=== PATIENT | female | born 1945 | race Caucasian/White ===

== ENCOUNTER → 2018-01-20 | Outpatient (CLI) | payer MEDICARE, BC ==
--- NOTE | 2018-01-20 14:21 | Diagnostic Imaging Report ---
EXAM: DXA BONE DENSITY INDICATIONS: SCREENING FOR OSTEOPOROSIS COMPARISON: Patients [facility], DX, BONE DXA DUAL ENERGY, 11/28/2014, 12:50. FINDINGS: Proximal left femur bone mineral density (BMD) (g/cm2):0.791 Femur T-score (standard deviation relative to young adult mean BMD): -1.2 Femur Z-score (standard deviation relative to age-matched control group):0.5 Proximal left femur bone mineral density (BMD) (g/cm2):0.641 Femur T-score (standard deviation relative to young adult mean BMD): -1.9 Femur Z-score (standard deviation relative to age-matched control group):0.1 Lumbar bone mineral density (BMD) (g/cm2):0.838 Lumbar T-score (standard deviation relative to young adult mean BMD): -1.9 Lumbar Z-score (standard deviation relative to age-matched control group):0.4 Change since prior exam (%): Femur:-7.6 Spine:-3.3 CONCLUSION: 1. Bone mineral density in the left femur is classified as osteopenia. Fracture risk is increased. 2. Bone mineral density in the spine is classified as osteopenia. Fracture risk is increased. World Health Organization Classification: *The Z-score is provided for informational purposes. The T-score is preferable for clinical decisions. When comparing exams, a change of >4% is considered statistically significant. SUGGESTED RECOMMENDATIONS: Normal \T\ Osteopenia:Consideration should be given to use of calcium supplementation, daily multiple vitamins and adequate exercise, as preventive measures against osteoporosis, if clinically indicated. Osteoporosis \T\ Severe Osteoporosis:In addition to the above, consideration should be given to medical therapy against osteoporosis, if clinically indicated. Ulisses Wheeler M.D. Dictated by: Ulisses Wheeler M.D. on 01/20/2018 at 12:20 Electronically approved by: Ulisses Wheeler M.D. on 01/20/2018 at 12:20
== END ==
LOC: MAMMO 08:37
PROVIDERS: ATTEND Internal Medicine
DX: Z12.31 Encounter for screening mammogram for malignant neoplasm of breast (principal); Z13.820 Encounter for screening for osteoporosis
CPT/HCPCS: 77067; 77080

== ENCOUNTER → 2018-02-19 | Outpatient (CLI) | payer MEDICARE, BC ==
--- NOTE | 2018-02-19 15:57 | Diagnostic Imaging Report ---
#[id number] - MGDXLT #UNILATERAL LEFT DIGITAL DIAGNOSTIC MAMMOGRAM WITH SPOT COMPRESSION: 02/19/2018 Comparison is made to exams dated: 01/20/2018 mammogram and 11/28/2014 mammogram - [facility]. Current study contains 2 films. The tissue of the left breast is heterogeneously dense. This may lower the sensitivity of mammography. Focal spot compression view and a true lateral view reveal no evidence of a mass. Findings on the previous study therefore represented overlapping breast tissue. Benign appearing calcification is present. No significant masses, calcifications or other findings are seen in the breast. There has been no significant interval change. IMPRESSION: BENIGN There is no mammographic evidence of malignancy. A 1 year screening mammogram is recommended. The patient will be notified by letter of the results. Jake Clark Jr., D.O. cw/:02/19/2018 14:20:53 Speech Coach: Jessica WILSON(Kevon)(Jared), [facility] letter sent: Normal Exam Mammogram BI-RADS: 2 Benign
== END ==
LOC: MAMMO 08:20
PROVIDERS: ATTEND Internal Medicine
DX: R92.2 Inconclusive mammogram (principal)

== ENCOUNTER 2019-01-20 11:59 | Emergency (ER) | payer MEDICARE, BC ==
[~2019-01-20] VITALS: Ht 160 cm; Wt 68.5 kg
--- OUTSIDE RECORDS SUMMARY | 2019-01-20 12:02 | XMS REPORT | Clinical Summary ---
Author Author [facility] Address Unknown Phone Unavailable Care Team Providers Care Field Sales Agent Name Role Phone Alvaro Gonzalez MD PCP Allergies No Known Allergies Medications End Date Status Medication Sig Dispensed Refills Start Date Active simvastatin (ZOCOR) 40 MG Take 40 mg by 0 tablet mouth nightly. Active apixaban (ELIQUIS) 5 mg Take 1 tablet 60 tablet 11 Tab tablet (5 mg total) 6 by mouth 2 (two) times daily. Active metFORMIN (GLUCOPHAGE-XR) Take 2 60 tablet 0 500 MG 24 hr tablet tablets 6 (1,000 mg total) by mouth daily. Active metFORMIN (GLUCOPHAGE) Take 500 mg 0 500 MG tablet by mouth daily with breakfast. 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 Chest pain 02/06/2016 Abnormal cardiovascular function study 02/06/2016 Chest pain, unspecified type 02/06/2016 Encounters Care Team Description Date Type Specialty Natalie Singer MD Lung nodule 03/10/2018 Hospital Radiology Encounter Natalie Singer MD Lung nodule (Primary Dx) 02/18/2018 Outside Orders Radiology after 01/19/2018 Social History Date Tobacco Use Types Packs/Day Years Used Never Smoker Alcohol Use Drinks/Week oz/Week Comments Yes 7 Glasses of 4.2 wine Sex Assigned at Date Recorded Not on file Industry Job Start Date Occupation Not on file Not on file Not on file Travel End Travel History Travel Start No recent travel history available. Last Filed Vital Signs Not on file Plan of Treatment Not on file Procedures Comments Procedure Name Priority Date/Time Associated Diagnosis CT CHEST WITHOUT IV Routine 03/10/2018 Lung nodule CONTRAST 10:17 AM CDT after 01/19/2018 Results * CT chest without IV contrast (03/10/2018 10:17 AM CDT) Specimen Narrative Performed At FINAL REPORT [facility] CT scan of the chest. HISTORY: Lung nodule. Comparison Study: August 20, 2017. TECHNIQUE: Contiguous helical slices were acquired through the thorax without the administration of contrast. This exam was performed according to our department dose optimization program which includes automated exposure control, adjustment of the mA and/or kV according to the patient's size and/or use of iterative reconstruction technique. FINDINGS: The mediastinum demonstrates no suspicious masses or adenopathy. Atherosclerosis is seen. There is trace peritoneal fluid. No pleural effusions are seen. The visualized portions of the upper abdomen are unremarkable. The tracheobronchial tree is clear with no endobronchial lesions. The pulmonary parenchyma demonstrates a 1 cm ill-defined nodule in the left upper lobe near the bronchovascular bundle, stable from previous. Scattered areas of atelectasis or fibrosis are seen. A stable 4 mm nodule is in the right lower lobe on image 132. No new nodules are seen. Bone windows demonstrate poststernotomy changes and degenerative changes. IMPRESSION: 1. Ill-defined left upper lobe nodule, stable from previous. The nodule has been stable since October 24, 2016. Continued follow-up to document at least two years of stability is recommended. 2. Stable tiny nodule in the right lower lobe. 3. No other significant change. Signed: Al Gomez MD Report Verified Date/Time:03/10/2018 10:59:47 Reading Location: [address] Ultrasound Reading Room Procedure Note Interface, External Ris In - 03/10/2018 11:02 AM CDT FINAL REPORT CT scan of the chest. HISTORY: Lung nodule. Comparison Study: August 20, 2017. TECHNIQUE: Contiguous helical slices were acquired through the thorax without the administration of contrast. This exam was performed according to our department dose optimization program which includes automated exposure control, adjustment of the mA and/or kV according to the patient's size and/or use of iterative reconstruction technique. FINDINGS: The mediastinum demonstrates no suspicious masses or adenopathy. Atherosclerosis is seen. There is trace peritoneal fluid. No pleural effusions are seen. The visualized portions of the upper abdomen are unremarkable. The tracheobronchial tree is clear with no endobronchial lesions. The pulmonary parenchyma demonstrates a 1 cm ill-defined nodule in the left upper lobe near the bronchovascular bundle, stable from previous. Scattered areas of atelectasis or fibrosis are seen. A stable 4 mm nodule is in the right lower lobe on image 132. No new nodules are seen. Bone windows demonstrate poststernotomy changes and degenerative changes. IMPRESSION: 1. Ill-defined left upper lobe nodule, stable from previous. The nodule has been stable since October 24, 2016. Continued follow-up to document at least two years of stability is recommended. 2. Stable tiny nodule in the right lower lobe. 3. No other significant change. Signed: Al Gomez MD Report Verified Date/Time: 03/10/2018 10:59:47 Reading Location: [facility] [id number] Ultrasound Reading Room Performing Organization Address City/State/Zipcode Phone Number GE RIS after 01/19/2018 Insurance Payer Benefit Subscriber ID Type Phone Address Plan / Group MEDICARE MEDICARE A xxxxxxxxxxx Medicare B BLUE CROSS/BLUE SHIELD BCBS xxxxxxxxxxxx O [phone] [address] [place] [address] [place] Advance Directives For more information, please contact: [facility] [address] [place] [address] Date Inactivated Comments Code Status Date Activated 02/22/2016 1:49 PM Full Code 02/17/2016 10:38 AM This code status was determined by: Patient 02/17/2016 10:38 AM Full Code 02/07/2016 2:27 PM This code status was determined by: Patient 02/07/2016 2:27 PM Full Code 02/06/2016 9:04 AM This code status was determined by: Patient
--- OUTSIDE RECORDS SUMMARY | 2019-01-20 12:02 | XMS REPORT | Clinical Summary ---
Author Author [facility] Address Unknown Phone Unavailable Care Team Providers Care Life Insurance Salesperson Name Role Phone Natalie Singer MD PCP Allergies Not on File Medications Not on file Active Problems Not on file Encounters Care Team Description Date Type Specialty Samaria Jo MD Abnormal results of cardiovascular function studies 07/03/2018 Hospital Procedural Cardiology Encounter Samaria Jo MD Abnormal results of cardiovascular function studies (Primary Dx) 06/23/2018 Transcribe Procedural Cardiology Orders Natalie Singer MD 04/10/2018 Hospital Radiology Encounter after 01/19/2018 Social History Date Tobacco Use Types Packs/Day Years Used Never Assessed Sex Assigned at Date Recorded Not on file Industry Job Start Date Occupation Not on file Not on file Not on file Travel End Travel History Travel Start No recent travel history available. Last Filed Vital Signs Reading Time Taken Comments Vital Sign 184/89 07/03/2018 2:35 PM ASSOCIATE SOFTWARE ENGINEER Blood Pressure 55 07/03/2018 2:35 PM ASSOCIATE SOFTWARE ENGINEER Pulse - - Temperature - - Respiratory Rate - - Oxygen Saturation - - Inhaled Oxygen Concentration - - Weight - - Height - - Body Mass Index Plan of Treatment Health Maintenance Due Date Last Done Comments BREAST CANCER SCREENING 1994 COLONOSCOPY SCREENING 1994 SHINGLES VACCINES (#1) 1994 65+ PNEUMOCOCCAL VACCINE 2009 (1 of 2 - PCV13) INFLUENZA VACCINE 12/31/2018 Procedures Comments Procedure Name Priority Date/Time Associated Diagnosis CV CTA CORONARY ARTERIES Routine 07/03/2018 Abnormal results of W CONTRAST 2:43 PM ASSOCIATE SOFTWARE ENGINEER cardiovascular function studies POC CREATININE Routine 07/03/2018 2:08 PM ASSOCIATE SOFTWARE ENGINEER ESTIMATED GFR Routine 07/03/2018 2:08 [address] CHEST EXTERNAL STUDY Routine 03/10/2018 10:30 AM CDT after 01/19/2018 Results * Cv cta coronary arteries w contrast and ffr if needed (07/03/2018 2:43 PM ASSOCIATE SOFTWARE ENGINEER) Specimen Narrative Performed At [facility] and Cardiac CT [address] [place] [address] CTA Coronary Arteries Report Pat.Name:JEANINE HA Pat.ID:[id number] .Date: 07/03/2018Refer.MD:SAMARIA JO MD Exam Time: 2:11:00 PMStudy Type:CTA Coronary Arteries Height:63inWeight:165lb BSA: 1.78 m2 DOBAge:1945,73Y Sex: FEMALEBP:198/91 HR:52 bpm Nuclear Tech:Destinee Shepard RT(R)(CT) Pat. Stat.:Outpatient CPT - 4: CCTA w Thoracic Aorta (NonCongenital) [id number] Nuclear Event ID:[id number] Order ID:[id number] Reason for Study:Chest pain, unspecified* Procedures:CT Prospective (intervals) SUMMARY: Technique: IV contrast was administered and sequential 0.[address] cuts were obtained through the chest using the Siemens Somatom [employer] CT scanner. Post-processing and 3D reconstruction were done using the [employer] workstation. Interactive image viewing and volumetric display and analysis were also performed. 3D coronary artery calcium scoring was done in accordance with a standardized protocol. CTA RESULTS Left Main: A normal sized artery which arises normally from the left sinus of Valsalva and divides into the left anterior descending and circumflex coronary arteries. Mild calcified and non-calcified atherosclerotic plaque is present but without significant stenosis. Left anterior descending (LAD): A normal sized artery which wraps around the apex and gives off one diagonal branch. Moderatecalcified and non-calcified atherosclerotic plaque is present in the proximal and mid segments with severe (>70% ) stenosis in the mid segment. The distal LAD is served by a patient BORGES The first diagonal is occluded. Left circumflex: A normal sizednon-dominant artery which arises normally from the left main and gives off two major obtuse marginal arteries before terminating in the AV groove. Mild calcified and non-calcified atherosclerotic plaque is present in the proximal and mid segments with but without significant stenosis. The first obtuse marginal is abifurcating artery. First branch has mild calcified and non-calcified atherosclerotic plaque present but no significant stenosis. Second branch is occluded proximally and the distal vessel is served by a patent SVG. The second obtuse marginal has mild calcified and non-calcified atherosclerotic plaque present but no significant stenosis. Right coronary artery: A normal sized dominant artery which arises normally from the right sinus of Valsalva and gives off several right ventricular branches, the posterior descending artery and the posterolateral artery. RCA is occluded in the proximal segment. The PDA is served by a patent SVG. The posterior descendinghas mild calcified and non-calcified atherosclerotic plaque present but no significant stenosis and is served by a patent SVG The posterolateralhas mild calcified and non-calcified atherosclerotic plaque present but no significant stenosis. Stents: None. Bypass Grafts: None. Patent left internal mammary graft to the distal left anterior descending coronary artery which has a widely patent anastomosis and no significant stenosis beyond the graft insertion. Patent saphenous vein graft to a branch of the first obtuse marginal coronary artery which has a widely patent anastomosis and no significant stenosis beyond the graft insertion. Patent saphenous vein graft to the distal right coronary artery which has a widely patent anastomosis and no significant stenosis beyond the graft insertion. Occluded saphenous vein graft. Pulmonary Arteries: Normal pulmonary artery sizes with no proximal thrombus identified. Left Atrial and Pulmonary Vein Dimensions: Left atrial size (A-P diameter) 4.4 cm. Normal PV anatomy There is no evidence of the left atrial appendage clot. Left Ventricular Valve Morphology/Function: Moderate MAC Thoracic Aortic Dimensions: No aortic aneurysm or dissection is seen. Aortic root3 cm. Mid ascending aorta 3.3 cm. Descending thoracic aorta 2.2 cm. Pericardium: No pericardial effusion or pericardial thickening. Non-Cardiac Findings: Small hiatal hernia. CONCLUSION Coronary CTA shows : -Patent left internal mammary graft to the distal left anterior descending coronary artery which has a widely patent anastomosis and no significant stenosis beyond the graft insertion. -Patent saphenous vein graft to a branch of the first obtuse marginal coronary artery which has a widely patent anastomosis and no significant stenosis beyond the graft insertion. -Patent saphenous vein graft to the distal right coronary artery which has a widely patent anastomosis and no significant stenosis beyond the graft insertion. -Occluded saphenous vein graft. STUDY QUALITY The study quality is excellent. COMMENTS None. The above report was based on a dedicated Cardiovascular CTA Protocol and interpreted by a Foreclosure Specialist.Should a more comprehensive assessment of non-cardiovascular findings be desired, please consult a radiologist.These images are available in the [facility] PACS system. Signed 07/03/2018 05:47 PM Terry Guaman MD Procedure Note Interface, Radiology Results In - 07/03/2018 5:47 PM ASSOCIATE SOFTWARE ENGINEER Nuclear Cardiology and Cardiac CT [address] [place] [address] CTA Coronary Arteries Report Pat.Name: JEANINE HA Pat.ID: [id number] St.Date: 07/03/2018 Refer.MD: SAMARIA JO MD Exam Time: 2:11:00 PM Study Type:CTA Coronary Arteries Height: 63in Weight: 165lb BSA: 1.78 m2 Age: 10 1945,73Y Sex: FEMALE BP: 198/91 HR: 52 bpm Nuclear Tech:RT Katelynn(R)(CT) Pat. Stat.:Outpatient CPT - 4: CCTA w Thoracic Aorta (NonCongenital) [id number] Nuclear Event ID:[id number] Order ID: [id number] Reason for Study:Chest pain, unspecified* Procedures:CT Prospective (intervals) SUMMARY: Technique: IV contrast was administered and sequential 0.[address] cuts were obtained through the chest using the Siemens Somatom Force CT scanner. Post-processing and 3D reconstruction were done using the [employer] workstation. Interactive image viewing and volumetric display and analysis were also performed. 3D coronary artery calcium scoring was done in accordance with a standardized protocol. CTA RESULTS Left Main: A normal sized artery which arises normally from the left sinus of Valsalva and divides into the left anterior descending and circumflex coronary arteries. Mild calcified and non-calcified atherosclerotic plaque is present but without significant stenosis. Left anterior descending (LAD): A normal sized artery which wraps around the apex and gives off one diagonal branch. Moderate calcified and non-calcified atherosclerotic plaque is present in the proximal and mid segments with severe (>70% ) stenosis in the mid segment. The distal LAD is served by a patient BROGES The first diagonal is occluded. Left circumflex: A normal sized non-dominant artery which arises normally from the left main and gives off two major obtuse marginal arteries before terminating in the AV groove. Mild calcified and non-calcified atherosclerotic plaque is present in the proximal and mid segments with but without significant stenosis. The first obtuse marginal is a bifurcating artery. First branch has mild calcified and non-calcified atherosclerotic plaque present but no significant stenosis. Second branch is occluded proximally and the distal vessel is served by a patent SVG. The second obtuse marginal has mild calcified and non-calcified atherosclerotic plaque present but no significant stenosis. Right coronary artery: A normal sized dominant artery which arises normally from the right sinus of Valsalva and gives off several right ventricular branches, the posterior descending artery and the posterolateral artery. RCA is occluded in the proximal segment. The PDA is served by a patent SVG. The posterior descending has mild calcified and non-calcified atherosclerotic plaque present but no significant stenosis and is served by a patent SVG The posterolateral has mild calcified and non-calcified atherosclerotic plaque present but no significant stenosis. Stents: None. Bypass Grafts: None. Patent left internal mammary graft to the distal left anterior descending coronary artery which has a widely patent anastomosis and no significant stenosis beyond the graft insertion. Patent saphenous vein graft to a branch of the first obtuse marginal coronary artery which has a widely patent anastomosis and no significant stenosis beyond the graft insertion. Patent saphenous vein graft to the distal right coronary artery which has a widely patent anastomosis and no significant stenosis beyond the graft insertion. Occluded saphenous vein graft. Pulmonary Arteries: Normal pulmonary artery sizes with no proximal thrombus identified. Left Atrial and Pulmonary Vein Dimensions: Left atrial size (A-P diameter) 4.4 cm. Normal PV anatomy There is no evidence of the left atrial appendage clot. Left Ventricular Valve Morphology/Function: Moderate MAC Thoracic Aortic Dimensions: No aortic aneurysm or dissection is seen. Aortic root 3 cm. Mid ascending aorta 3.3 cm. Descending thoracic aorta 2.2 cm. Pericardium: No pericardial effusion or pericardial thickening. Non-Cardiac Findings: Small hiatal hernia. CONCLUSION Coronary CTA shows : -Patent left internal mammary graft to the distal left anterior descending coronary artery which has a widely patent anastomosis and no significant stenosis beyond the graft insertion. -Patent saphenous vein graft to a branch of the first obtuse marginal coronary artery which has a widely patent anastomosis and no significant stenosis beyond the graft insertion. -Patent saphenous vein graft to the distal right coronary artery which has a widely patent anastomosis and no significant stenosis beyond the graft insertion. -Occluded saphenous vein graft. STUDY QUALITY The study quality is excellent. COMMENTS None. The above report was based on a dedicated Cardiovascular CTA Protocol and interpreted by a Foreclosure Specialist. Should a more comprehensive assessment of non-cardiovascular findings be desired, please consult a radiologist. These images are available in the [facility] [employer] PACS system. Signed 07/03/2018 05:47 PM Terry Guaman MD Performing Organization Address City/[facility]/Zipcode Phone Number [facility] [address] [phone] * Estimated GFR (07/03/2018 2:08 PM ASSOCIATE SOFTWARE ENGINEER) [facility] Estimated GFR 85 mL/min/1.73 m2 [facility] Comment: [facility] rpretation G1 >=90 Normal or high G2 60-89Mildly decreased G9w38-82 Mildly to moderately decreased O0m33-89 Moderately to severely decreased G4 15-29Severely decreased G5 <15Kidney failure The eGFR was calculated using the Chronic Kidney Disease Epidemiology Collaboration (CKD-EPI) equation. Interpretation is based on recommendations of the National Kidney Foundation-Kidney Disease Outcomes Quality Initiative (NKF-KDOQI) published in 2014. Specimen Blood Performing Organization Address [facility]/Zipcode Phone Number [facility] DEPARTMENT OF [address] [place] [address] PATHOLOGY AND GENOMIC MEDICINE [facility] [address] [place] [address] * POC creatinine (07/03/2018 2:08 PM ASSOCIATE SOFTWARE ENGINEER) [facility] POC creatinine 0.7 0.5 - 0.9 mg/dl [facility] Comment: WORSHIP Meter ID: [id number] HOSPITAL Cash Applications Specialist: Claude Nicole Specimen Blood Performing Organization Address City/State/Zipcode Phone Number [facility] DEPARTMENT OF [address] [place] [address] PATHOLOGY AND GENOMIC MEDICINE [facility] [address] [place], [place] [id number] [place] [address] * CT Chest External Study (03/10/2018 10:30 AM CDT) Specimen Narrative Performed At This exam was not acquired at a [facility] facility and has not been [facility] interpreted by a [facility] Provider.The exam was imported into our imaging system for comparisons purposes. Performing Organization Address City/State/Zipcode Phone Number [facility] [address] [place] [address] after 01/19/2018 Insurance Type Payer Benefit Subscriber ID Effective Phone Address Plan / Dates Group Medicare MEDICARE MEDICARE xxxxxxxxxx 2009- [facility], PART A AND Present [place] PPO BCBS BCBS xxxxxxxxxxxx 2009- CHOICE Present PPO/MARIBEL SANTIAGO PPO Advance Directives For more information, please contact: [phone] Patient Support Representative Explanation Type Date Recorded Advance Directives, Living Will and Medical Power of Nutrition Manager
--- OUTSIDE RECORDS SUMMARY | 2019-01-20 12:02 | XMS REPORT ---
Author Author [facility] Address Unknown Phone Unavailable Care Team Providers Care Check Cashier Name Role Phone Abdoulaye ROACH Unavailable Unavailable CRISTINA MCCANN Unavailable Unavailable Problems This patient has no known problems. Allergies, Adverse Reactions, Alerts This patient has no known allergies or adverse reactions. Medications This patient has no known medications. Results Test Description Test Time Test Comments Text Results Atomic Results Result Comments CT, CHEST, WITHOUT CONTRAST 2018-03-10 10:59:[address] scan of the chest. [...] windows demonstrate poststernotomy changes and degenerative changes. IMPRESSION:1. Ill-defined left upper lobe nodule, stable from previous. The nodule has been stable since October 24, 2016. Continued follow-up to document at least two years of stability is recommended.2. Stable tiny nodule in the right lower lobe.3. No other significant change. Signed: Al Gomez MDReport Verified Date/Time: 03/10/2018 10:59:47 Reading Location: [address] Ultrasound Reading Room OGRAPHY DIGITAL DX UNI LT 2018-02-19 09:20:00 [place] [address] Patient Name: JEANINE PULIDO MR #: [id number] : 1945 Age/Sex: 72/F Req #: [id number] [facility] Physician: Ordered by: TRUDY ROACH MD Report #: [id number] Location: MAMMO Room/Bed: Procedure: [id number] MG/MAMMOGRAPHY DIGITAL DX UNI LT Exam Date: 02/19/18 Exam Time: 832 REPORT STATUS: Signed #[id number] - [id number] #UNILATERAL LEFT DIGITAL DIAGNOSTIC MAMMOGRAM WITH SPOT COMPRESSION: 02/19/2018 Comparison is made to exams dated: 01/20/2018 mammogram and 11/28/2014 mammogram - [facility]. Current study contains 2 films. The tissue of the left breast is heterogeneously dense. This may lower the sensitivity of mammography. Focal spot compression view and a true lateral view reveal no evidence of a mass. Findings on the previous study therefore represented overlapping breast tissue. Benign appearing calcification is present. No significant masses, calcifications or other findings are seen in the breast. There has been no significant interval change. IMPRESSION: BENIGN There is no mammographic evidence of malignancy. A 1 year screening mammogram is r ecommended. The patient will be notified by letter of the results. Naresh Clark Jr., D.O. cw/:02/19/2018 14:20:53 Animal Caregiver: Jessica WILSON(R)(M), [facility] letter sent: Normal Exam Mammogram BI-RADS: 2 Benign Dictated By: NARESH CLARK DO 142 Transcribed By: LYNNETTE on 02/19/18 142 COPY TO: TRUDY ROACH MD BONE DXA DUAL ENERGY 2018-01-20 12:20:00 [place] [address] Patient Name: JEANINE PULIDO MR #: [id number] : 1945 Age/Sex: 72/F Req #: [id number] Adm Physician: Ordered by: TRUDY ROACH MD Report #: [id number] Location: MAMMO Room/Bed: Procedure: [id number] DX/BONE DXA DUAL ENERGY Exam Date: Exam Time: REPORT STATUS: Signed EXAM: DXA BONE DENSITY INDICATIONS: SCREENING FOR OSTEOPOROSIS COMPARISON: [facility], DX, BONE DXA DUAL ENERGY, 11/28/2014, 12:50. FINDINGS: Proximal left femur bone mineral density (BMD) (g/cm2): 0.791 Femur T-score (standard deviation relative to young adult mean BMD): -1.2 Femur Z-score (standard deviation relative to age-matched control group): 0.5 Proximal left femur bone mineral density (BMD) (g/cm2): 0.641 Femur T-score (standard deviation relative to young adult mean BMD): -1.9 Femur Z-score (standard deviation relative to age-matched control group): 0.1 Lumbar bone mineral density (BMD) (g/cm2): 0.838 Lumbar T-score (standard deviation relative to young adult mean BMD): -1.9 Lumbar Z- score (standard deviation relative to age-matched control group): 0.4 Change since prior exam (%): Femur: -7.6 Spine: -3.3 CONCLUSION: 1. Bone mineral density in the left femur is classified as osteopenia. Fracture risk is increased. 2. Bone mineral density in the spine is classified as osteopenia. Fracture risk is increased. World Health Organization Classification: *The Z-score is provided for informational purposes. The T- score is preferable for clinical decisions. When comparing exams, a change of >4% is considered statistically significant. SUGGESTED RECOMMENDATIONS: Normal T Osteopenia: Consideration should be given to use of calcium supplementation, daily multiple vitamins and adequate exercise, as preventive measures against osteoporosis, if clinically indicated. Osteoporosis T S evere Osteoporosis: In addition to the above, consideration should be given to medical therapy against osteoporosis, if clinically indicated. Morgan Wheeler M.D. Dictated by: Morgan Wheeler M.D. on 01/20/2018 at 12:20 Electronically approved by: Morgan Wheeler M.D. on 01/20/2018 at 12:20 Dictated By: MORGAN WHEELER MD 1220 Transcribed By: BOBO on 01/20/18 1220 COPY TO: TRUDY ROACH MD MAMMOGRAPHY DIGITAL SCR BILAT 2018-01-20 09:39:00 [place] [address] Patient Name: JEANINE PULIDO MR #: [id number] : 1945 Age/Sex: 72/F Req #: [id number] Adm Physician: Ordered by: TRUDY ROACH MD Report #: [id number] Location: MAMMO Room/Bed: Procedure: [id number] MG/MAMMOGRAPHY DIGITAL SCR BILAT Exam Date: 01/20/18 Exam Time: 0900 REPORT STATUS: Signed #[id number] - [id number] #BILATERAL DIGITAL SCREENING MAMMOGRAM WITH CAD: 01/20/2018 CLINICAL: Routine screening. Comparison is made to exam dated: 11/28/2014 mammogram - [facility]. Current study contains 4 films. The tissue of both breasts is heterogeneously dense. This may lower the sensitivity of mammography. Current study was also evaluated with a Computer Aided Detection (CAD) system. There is a round density in the left breast anterior depth central to the nipple seen on the mediolateral oblique view only. There are benign calcifications in both breasts. No other significant masses, calcifications, or other findings are seen in either breast. IMPRESSION: INCOMPLETE: NEEDS ADDITIONAL IMAGING EVALUATION The round density in the left breast is indeterminate. Additional views with possible ultrasound are recommended. The patient will be contacted by the Mammography Department to schedule this appointment. Naresh Clark Jr., D.O. cw/:01/27/2018 09:36:46 Animal Caregiver: Jessica WILSON(R)(Jared), [facility] letter sent: Additional Imaging Needed Mammogram BI-RADS: 0 Indeterminate Dictated By: NARESH CLARK DO 5 Transcribed By: LYNNETTE on 01/27/18935 COPY TO: TRUDY ROACH MD CT, CHEST, WITHOUT CONTRAST 2017-08-20 10:43:00 FINAL REPORT HISTORY: LUNG NODULE COMPARISON : 02/06/2017 Technique : Multiple axial images of the chest were performed from the lung apices to the lung bases without the administration of IV contrast. Images were presented in both the lung and soft tissue windows. This exam was performed according to our departmental dose optimization program which includes automated exposure con trol, adjustment of the mA and/or kV according to patient size and/or use of iterative reconstructive technique. Comment: The thyroid gland is within normal limits. There is no hilar, mediastinal or axillary lymphadenopathy. There is atherosclerotic vascular disease. There is some coronary atherosclerosis. There is cardiomegaly. In the anterior pericardial space, there is an approximately 2.0 x 0.8 cm somewhat elongated hypodensity with fluid attenuation. More likely, this represents a small amount of loculated pericardial fluid. There is a small sized hiatal hernia. The visualized portions of the spleen, adrenal glands, pancreas, and kidneys are within normal limits. The liver is hyperdense. The findings could be related to iron or amiodarone deposition. Multilevel degenerative disc changes of the thoracic spine are seen. The patient is status post sternotomy. In the right lower lobe, there is a stable somewhat linear nodule identified measuring up to 0.3 cm. There is some likely atelectasis in the lingula which is grossly unchanged. In the left upper lobe, there is an approximately 0.9 cm nodule which is not appreciably changed. There is no pleural effusion, pneumothorax or infiltrate. Impression: 1. Stable left upper lobe nodule. Early malignancy cannot be excluded. Continued close CT follow-up or PET-CT scan is advised. 2. Stable subcentimeter right lower lobe pulmonary nodule. Signed: Terra José Verified Date/Time: 08/20/2017 10:43:43 Reading Location: [facility] Diagnostic Imaging Reading Room - [place] [address] , CHEST, WITHOUT CONTRAST 2017-02-06 16:13:00 FINAL REPORT Technique: CT of the chest without intravenous contrast. Images obtained using "5D protocol" as requested by the referring physician. DOSE REDUCTION: The examination was performed according to departmental dose- optimization program which includes automated exposure control, adjustment of the mA and/or kV according to patient size and/or use of iterative reconstructi on technique. COMPARISON: Coronary CT, 10/24/2016 Discussion: A left upper lobe nodule is again noted. This measures 0.9 cm. When measured in a similar manner on the previous chest CT from 10/24/2016 there is no significant change. There is a 3 mm nodule in the right lower lobe, image 27. There is scattered atelectasis and/or scarring. No focal consolidation or pleural effusion. No significant interstitial disease. Atherosclerotic vascular calcifications are seen. Heart normal in size. Trace pericardial effusion or thickening seen. No significant mediastinal or hilar lymphadenopathy. No focal abnormality in the upper abdomen. No acute skeletal abnormality. No suspicious osseous lesions. IMPRESSION: 1. Left upper lobe nodule, stable from 10/24/2016. Early malignancy cannot be excluded, close follow up recommended. 2. 3 mm right lower lobe nodule which could be followed up. Signed: Rakesh Alvarezeport Verified Date/Time: 02/06/2017 16:13:16 Reading Location: [facility] Radiology Reading Room Electr onically signed by: RAKESH ALVAREZ M.D. on 02/06/2017 04:13 PM POCT-CREATININE 2016-10-24 10:22:00 POC-CREATININE (BEAKER) (test kawt=0218) 0.6 mg/dL 0.6-1.[address] [facility] [address] [facility] [address] POC-EGFR (BEAKER) (test jizu=9113) 98 mL/min/1.73M2
[2019-01-20] MEDS ORDERED: KETOROLAC TROMETHAMINE 60 MG/2 ML VIAL IM ONE (12:15)
[2019-01-20] MEDS ORDERED: DIAZEPAM 2 MG TAB PO ONE (12:15)
--- NOTE | 2019-01-20 12:28 | NUR ---
PATIENT DECLINED AT THIS TIME ANY PAIN MEDICATIONS
[2019-01-20] MEDS ORDERED: DIAZEPAM 5 MG TAB PO ONE (12:45)
--- NOTE | 2019-01-20 14:45 | NUR ---
Pt stated she did not want medications ordered. Asked pt if she preferred something else, stated ok to recieve Ibuprofen. ANTHONY Rios notified stated will order Ibuprofen 400mg PO.
[2019-01-20] MEDS ORDERED: IBUPROFEN 400 MG TAB PO ONE (15:00)
--- NOTE | 2019-01-20 15:15 | NUR ---
Went to medicate pt and daughter stated she had just given her Tylenol extra strength x2 in the lobby.
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
[2019-01-20] MEDS ORDERED: ULTRAM50 MG PO (15:41)
[2019-01-20 16:14] VITALS: BP 164/77
[2019-01-20] MEDS ORDERED: LIDOCAINE 5% PATCH TP SCH (16:30)
== END 2019-01-20 16:20 | disposition home or self-care (01) ==
LOC: ER 11:59
DX: S46.011A Strain of muscle(s) and tendon(s) of the rotator cuff of right shoulder, initial encounter (principal); V43.62XA Car passenger injured in collision with other type car in traffic accident, initial encounter; Y92.410 Unspecified street and highway as the place of occurrence of the external cause
CPT/HCPCS: 71111; 99283

== ENCOUNTER → 2019-03-15 | Outpatient (CLI) | payer MEDICARE, BC ==
[~2019-03-15] MED LIST: ULTRAM50 MG PO
== END ==
LOC: MAMMO 13:22
PROVIDERS: ATTEND Internal Medicine
DX: Z12.31 Encounter for screening mammogram for malignant neoplasm of breast (principal)
CPT/HCPCS: 77067

== ENCOUNTER → 2020-04-21 | Outpatient (CLI) | payer MEDICARE, BC | LOC: MAMMO 10:15 | PROVIDERS: ATTEND Internal Medicine | DX: Z12.31 Encounter for screening mammogram for malignant neoplasm of breast (principal); M81.0 Age-related osteoporosis without current pathological fracture; Z78.0 Asymptomatic menopausal state | CPT/HCPCS: 77067; 77080 ==

== ENCOUNTER → 2021-10-03 | Outpatient (CLI) | payer MEDICARE | LOC: RAD 12:13 | PROVIDERS: ATTEND Internal Medicine | DX: M25.531 Pain in right wrist (principal); M79.641 Pain in right hand; Z91.81 History of falling ==

== ENCOUNTER → 2022-08-14 | Outpatient (CLI) | payer MEDICARE | LOC: MRI 07:40 | PROVIDERS: ATTEND Internal Medicine | DX: I65.29 Occlusion and stenosis of unspecified carotid artery (principal); F01.50 Vascular dementia, unspecified severity, without behavioral disturbance, psychotic disturbance, mood disturbance, and anxiety | CPT/HCPCS: 70551 ==

== ENCOUNTER → 2022-09-17 | Outpatient (CLI) | payer MEDICARE | LOC: MAMMO 15:30 | PROVIDERS: ATTEND Internal Medicine | DX: Z12.31 Encounter for screening mammogram for malignant neoplasm of breast (principal) | CPT/HCPCS: 77067 ==